=== PATIENT | male | born 1960 | race Caucasian/White ===

== ENCOUNTER → 2019-11-14 | Outpatient (CLI) | payer BC ==
--- NOTE | 2019-11-14 13:24 | DRAGON STRESS TEST REPORT ---
Exercise nuclear stress test Date: 11/14/2019 Referring physician: Self Performing physician: Joey Beyer MD Indication: Chest pain Clinical history 59 male with medical history significant for systemic hypertension presented with chest pain. We decided to stay evaluate for myocardial ischemia as cause of symptoms. Procedure The patient presented to the stress lab. Initially rest images were obtained according to standard protocol after the injection of 11.34 millicurie technetium 99m sestamibi. Subsequently the patient underwent exercise nuclear stress test according to [facility] protocol. The patient exercised on the treadmill according to [facility] protocol for a total of 9 minutes achieving a maximum heart rate of bpm which was 85% of maximum predicted of 167 bpm. His maximum workload was 10.1 METS. The presenting EKG showed sinus rhythm at 69 bpm. The patient's initial blood pressure was 147/85 mmHg. Upon exercise the heart rate jade to a maximum of 144 beats per minute and the blood pressure jade to a maximum of 185/81 mmHg. The patient had appropriate increment in heart rate and blood pressure with exercise. At peak exercise the patient was injected with 38.3 millicuries of technetium 99m sestamibi. He continued to run on the treadmill for another 60 seconds. The exercise EKG was negative for myocardial ischemia. The recovery EKG did not reveal any evidence of myocardial ischemia. The patient tolerated the exercise well and did not report chest pain or dyspnea. The test was terminated on account of patient fatigue and her having achieved target heart rate. The patient's EKG and vital signs were monitored throughout the procedure. After a period of rest, stress images were obtained according to standard protocol. Raw as well as processed rest and stress images were reviewed. There was mild gut uptake which did not interfere with the study. The rest and stress images show uniform uptake of radioactive isotope without any fixed or reversible defects to suggest myocardial ischemia or myocardial infarction. There is evidence of diaphragmatic attenuation which is worse on the rest images as compared to the stress images. There is normal contractility post-rest. The calculated ejection fraction is 61 %. The TID ratio is 0.82. Conclusion The exercise EKG is negative for myocardial ischemia. There is no scintigraphic evidence for myocardial ischemia or myocardial infarction. Fair exercise tolerance. Normal heart rate and blood pressure response to exercise. There is normal contractility post stress. Gated left ventricular ejection fraction is estimated at 61 % The patient will be given an appointment to discuss these test results.. MTDD
== END ==
LOC: RAD 07:01
PROVIDERS: ATTEND Internal Medicine
DX: I20.0 Unstable angina (principal); I10 Essential (primary) hypertension; R07.9 Chest pain, unspecified
CPT/HCPCS: 93017; 78452; A9500; Q9969